=== PATIENT | male | born 1960 | race Caucasian/White ===

== ENCOUNTER 2016-07-06 10:53 | Observation (INO) | payer OTHER ==
[~2016-07-06] VITALS: Ht 182.2 cm; Wt 82.2 kg
[2016-07-06] VITALS (13 sets, daily range): BP systolic 118–145; BP diastolic 69–98; PULSE 51–63; RESP 12–20; O2SAT 97–100
[~2016-07-06 10:53] MED LIST: ATRV10T PO; Aspirin PO; CLOP75TA3 PO; Metoprolol Tartrate PO; [UNRECOGNIZED DRUG - REMARK] SL
[2016-07-06] MEDS ORDERED: Heparin 10,000 Unit/1,000 mL NS Premix IV ONE (15:56)
[2016-07-06] MEDS ORDERED: Heparin 1,000 Unit/mL 10 mL Inj ONE (15:56)
[2016-07-06] MEDS ORDERED: Heparin 1,000 Units/500 mL NS Premix IV ONE ×2 (15:56→17:05)
[2016-07-06] MEDS ORDERED: 0.9% Sodium Chloride 1,000 ML IV ONE (15:59)
[2016-07-06] MEDS ORDERED: Alum-Mag Hydrox-Simeth 30 mL Suspension PO PRN (16:10)
[2016-07-06] MEDS ORDERED: Senna-Docusate 8.6-50 mg Tablet PO PRN (16:10)
[2016-07-06] MEDS ORDERED: Ondansetron 2 mg/mL 2 mL Inj IVPUSH PRN ×2 (16:10→18:40)
[2016-07-06] MEDS ORDERED: Polyethylene Glycol (PEG) 17 Gm Powder PO PRN (16:10)
--- NOTE | 2016-07-06 16:16 | PCM.CHPCAR ---
Consult Subjective Date of service July 06, 2016 Date of admit July 06, 2016 at 15:50 Provider Requesting Consult Requesting Provider: Jameson Hager MD Primary Care Physician Primary Care Physician: Anaya Chief Complaint Chest pain History of Present Illness 56 y/o male with known CAD with s/p LCx stent in 2013. He sees Dr. Beasley. He was last seen in 2016 and was doing well. However, he has noticed classic symptoms for progressive exertioanal angina over the past 5 days which is new since his prior NSTEMI. He has normal LVEF. He has been compliant with his meds. His EKGs show no acute ST-T changes. His troponin(s) have been negative. Initially, we thought that we can schedule him as an outpatient cath but due to the fact he lives on [facility] and lives essentially alone, we decided to transfer him to [facility] for coronary angiogram. Review of Systems General: Denies: Energy Fatigue Eyes: Denies: Problem or recent change in eyes Ears, Nose, Mouth & Throat: Denies: Any hearing loss Respiratory: Denies: Dyspnea at rest Dyspnea with exertion Orthopnea or PND Significant dyspnea Cardiovascular: Reports: Usual anginal symptoms Denies: Atrial Fibrillation Gastrointestinal: Denies: Recent melena or hematochezia Ulcers or GI blood loss Genitourinary: Denies: Prostate symptoms Urinary symptoms Neurological: Denies: Any history of stroke/TIA symptoms Psychiatric: Denies: Anxiety Depression Endocrine: Denies: Heat or cold intolerance Polyuria or Polydipsia Integumentary: Denies: Any change in hair or nails Any rash or skin lesions Hematologic/Immunologic: Denies: Recent history of anemia Unusual bruising or bleeding [facility] Cardiovascular History: Denies: Coronary Artery Disease Myocardial Infarction Hx Any Other Health Problems?: NoHx Diabetes: No Scheduled ([Aspirin]) 81 MG TAB.CHEW 81 MG PO DAILY ([Metoprolol Tartrate]) 25 MG TABLET 25 MG PO BID Atorvastatin (Lipitor) 10 Mg Tab 10 MG PO DAILY Clopidogrel Bisulfate (Plavix) 75 Mg Tablet 75 MG PO DAILY Scheduled PRN ([Nitroglycerin-Expunged Drug, Do Not Renew!]) 0.4 MG SUBL 0.4 MG SL Q5MIN PRN PRN For Chest Pain Current Inpatient Medications Current Medications Lorazepam 1 mg ONCE PRN IVPUSH; Start 07/06/16 at 16:00; Stop 07/07/16 at 16:01 Nitroglycerin 0.4 mg PRN PRN SL; Start 07/06/16 at 16:00 Sodium Chloride 10 ml NINA IVFLUSH; Start 07/06/16 at 16:30 Allergies: Coded Allergies: Penicillins (Verified Allergy, Severe, Anaphylaxis, 07/08/12) Family History Family History Family hx of obesity but no premature CAD Social History Hx Alcohol Use: YesHx Tobacco Use: Yes Smoking Status: Light Tobacco Smoker (use nicotine gum/patch, quit smoking 2013) Exam General: Pleasant Cooperative Skin: Warm & dry to touch Head: Normocephalic Eye: EOMS intact No arcus or xanthelasma Neck: No JVD Ears, Nose & Throat: Ears no gross abnormalities Nose no gross abnormalities Cardiac: Normal non-displaced apical impulse Regular rhythm Normal S1 and S2 No murmurs Pulses: Pulses full/equal all extremities Both femoral pulses 2+ Abdomen: Soft, non-distended, non-tender No bruits Lymphatic: No palpable lymphadenopathy Extremities: Warm w/o deformities,erythema noted Neurological: Alert & oriented Psychological: Affect & interaction appropriate Assessment & Plan Problems: (1) CAD (coronary artery disease) Qualifiers: Coronary Disease-Associated Artery/Lesion type: [place] artery [place] vs. transplanted heart: [place] heart Associated angina: with unstable angina Qualified Code: I25.110 - Atherosclerotic heart disease of [place] coronary artery with unstable angina pectoris Plan: Actually, patient possibly has unstable angina based on the fact it has been quite suddenly and rapid onset, but still only occurs on exertion. Based on the fact he had residual LAD stenosis and prior PCI to mid LCx, I think it would be prudent to go ahead and take him to [employer] to delineate his coronary anatomy. Patient has clear understanding of the procedure and will like to go ahead with the coronary angiogram. Hopefully, this will be a straightforward PCI and if so then he may go home tomorrow. Apparently he lives with his girlfriend. Status: Acute ICD Code: I25.10 (2) Unstable angina Status: Acute ICD Code: I20.0 Time spent 60 minutes Ruperto Zuniga MD July 06, 2016 16:15
[2016-07-06] MEDS ORDERED: ATOR10TA66 PO (16:19)
[2016-07-06] MEDS ORDERED: ASPI-973 PO (16:19)
[2016-07-06] MEDS ORDERED: METO25TA6 PO (16:20)
[2016-07-06] MEDS ORDERED: NITR0.4T SL (16:20)
[2016-07-06] MEDS ORDERED: CLOP75TA28 PO (16:20)
[2016-07-06] MEDS ORDERED: Sodium Chloride LOK Flush 10 mL Syringe IVFLUSH SCH (16:30)
[2016-07-06] MEDS ORDERED: fentaNYL-PF 50 mCg/mL 2 mL Inj ONE (16:34)
[2016-07-06] MEDS ORDERED: Nitroglycerin 50,000 mcg/250 mL D5W Premix IV ONE (16:55)
--- NOTE | 2016-07-06 17:16 | PCM.CVCATH ---
Cardiac Cath Report Date of Service July 06, 2016 Primary Indication Unstable angina Procedure 1 Left heart catheterization 2. Selective coronary angiogram 3. Right femoral angiogram Vascular Access Right common femoral artery Procedure Details The patient was brought into the catheterization laboratory. The patient was nothing by mouth since midnight. The patient was prepped and sterilized in the appropriate fashion. Local anesthetic was given to the right groin region with lidocaine 1%. A percutaneous stick to the right groin region with an 18-gauge Seldinger needle was attempted. A 6 Ukrainian sheath was inserted into the right femoral artery. A 6 Ukrainian FL 4 diagnostic catheter was advanced and engaged into the left main. The left coronary angiography was performed in multiple views. The catheter was exchanged over the wire for a 6 Ukrainian FR4 diagnostic catheter. The catheter was engaged in the right coronary ostium and the right coronary angiography was performed in multiple views. The catheter was removed over the wire and exchanged for 6 Ukrainian angle pigtail catheter. LV hemodynamics were recorded. LV pullback was performed. All catheters were removed. The right femoral angiogram was performed to evaluate for closure device. Hemostasis was obtained with Perclose. The patient was transferred back to special observation unit for post procedural monitoring. There were no immediate complications. Total fluoroscopy time:3.8 min Total fluoroscopy dosage: 510 mGy Estimated blood loss: 15 mL Total contrast: 120 mL Findings 1. Hemodynamics: The left ventricular systolic pressure was estimated at 134 mmHg and the left ventricular end-diastolic pressure was estimated at 20 mmHg. There is no significant gradient during pullback. Aortic systemic pressure was 134/75 mmHg. 2. Selective coronary angiography: A. Left main: The artery has no evidence of significant disease. It bifurcates into the left anterior descending and left circumflex arteries. B. Left anterior descending artery: There is a 70% mid LAD stenosis. The first diagonal artery has a 50% stenosis. Otherwise the rest of the LAD shows no evidence of significant disease. C. Left circumflex artery: There is a 99% mid stenosis in a large bifurcated marginal artery. D. Right coronary artery: There is no evidence of significant disease. This is a dominant vessel. 4. Right femoral angiogram: There is no evidence of significant disease. Summary 1. Critical mid left circumflex artery stenosis. 2. Severe stenosis in the mid LAD. Comparison to previous angiogram it appears to be slightly worse. 3. Elevated left ventricular end-diastolic pressures. Recommendations The patient will proceed with urgent PCI the left circumflex artery. If that proceed smoothly then we will proceed with PCI of the mid LAD as well. If there are no complications overnight the patient may be discharged home tomorrow afternoon. copies to: Yuliana Beasley MD, Oscar J MD July 06, 2016 17:16
--- NOTE | 2016-07-06 18:19 | PCM.HPMED ---
Subjective Date of Service July 06, 2016 Primary Provider: Admitting Physician: Jameson Hager MD Primary Care Physician: Anaya Attending Physician: Jameson Hager MD Admit Status: Direct Admit ([facility]) Chief Complaint: Chest pain History of Present Illness: Mr. Salmon is a 56-year-old gentleman with a history of coronary artery disease and NSTEMI status post stent placement in December of 2013 who presented to [facility] with a 5 day history of chest pain on exertion and transferred here for cardiac catheterization. History obtained via chart review and from patient in the [facility] following PCI. He states that the chest pain he has been having occurs with exertion and has been relieved with rest. He denies associated symptoms including: shortness of breath, nausea or diaphoresis. He states that he is still having chest pain with radiation down his left arm post PCI that is just as severe as when he came. He otherwise is without complaint. Of note, patient was hospitalized here from 01/14- for NSTEMI and underwent PCI with LUIGI to left circumflex. Cardiac cath at that time also showed moderate stenosis of about 50-60% of the LAD and an EF of 55-60%. At [facility] his EKG showed normal sinus rhythm with no acute ST-T changes and troponin was negative. However, due to the rather acute onset and the fact that patient lives alone on [facility] the decision was made to transfer here for intervention. Labs: Troponin < 0.012, Creatinine kinase 182, CK-MB 1.85, Sodium 143, Potassium 4, Chloride 105, Bicarb 24, BUN 11, Creatinine 0.80, Glucose 77, WBC 7.5, Hb 14.6, Hct 42.5, plt 184. Review of Systems: A comprehensive review of systems was conducted with the patient and found to be negative except as above in the History of Present Illness. Allergies Coded Allergies: Penicillins (Verified Allergy, Severe, Anaphylaxis, 07/08/12) Home Medications As per most recent record. Medication rec not completed at the time of admission. Will confirm medications and order as appropriate. Appreciate Cardiology recommendations. Chart review shows the following: -Metoprolol tartrate 12.5mg BID -Aspirin 81mg daily -Atorvastatin 10mg daily -Clopidogrel 75mg daily -SL nitro 0.4mg prn PMH Coronary artery disease NSTEMI s/p LUIGI 01/15/14 Hyperlipidemia Chest pain Tobacco use Rupture of extensor tendon, finger . Surgical History Cardiac catheterization with LUIGI placement 01/15/14 Back surgery, 1985, 1997 Family History Father- diabetes, prostate cancer Social History Hx Alcohol Use: Yes Hx Substance Use: No Hx Tobacco Use: Yes Smoking Status: Current Some Day Smoker, Light Tobacco Smoker Living Arrangement: Alone Exam Exam General: Well-developed, well-nourished, appears comfortable and in no acute distress. HEENT: Normocephalic, atraumatic. External ears without defect. Pupils equal, round, and reactive to light and accommodation. Anicteric sclerae, moist conjunctivae, and no lid lag. Oropharynx free of erythema and cobble stoning with moist mucosa. Neck: Supple with full range of motion. No jugular venous distension. No bruits. No lymphadenopathy or thyromegaly. Cardiovascular: Regular rate and rhythm with no murmurs, rubs, or gallops appreciated Pulmonary: Clear to auscultation bilaterally with no crackles, wheezes, or rhonchi. Normal respiratory effort with no use of accessory muscles. Abdomen: Bowel tones present. Soft, nontender, nondistended. No hepatosplenomegaly or masses appreciated. Extremities: No clubbing, cyanosis, edema, or lymphadenopathy appreciated. Left groin cath site is clean and dry without bleeding or ecchymosis. Skin: Normal temperature, turgor, and texture; no rash, ulcers, or subcutaneous nodules appreciated. Neurological: Cranial nerves grossly intact. Normal muscle strength, tone, and bulk. No known gait impairment. Psychiatric: Normal mood and affect. Alert and oriented to person, place, and time. Assessment & Plan Mr. Salmon is a 56-year-old gentleman with a history of coronary artery disease and NSTEMI status post drug-eluting stent placement in December of 2013 transferred from [facility] for cardiac catheterization following exertional chest pain for the past five days. Chest pain, acute. Present on admission. Active. -Patient with known CAD, prior NSTEMI s/p LUIGI who presented with five day history of exertional chest pain. -EKG with no acute ST-T changes and initial troponin negative. Creatinine kinase elevated at 182. CK-MB 1.85 -Most recent echocardiogram(2013) and stress test (2014) normal without evidence of ischemia and EF 55-60%. -Admit to [facility] with telemetry post cath/PCI -Cardiology is following, appreciate recommendations. -Will continue medications per Cardiology: aspirin, plavix, statin, beta-lyndon -SL nitro as needed, as long as BP tolerates Coronary artery disease, chronic. Present on admission. Active -Status post left-sided cardiac catheterization and PCI, per Cardiology. -Continue aspirin, plavix, statin Dyslipidemia, chronic. Present on admission. Presumed stable. -Continue aspirin, statin History of tobacco use. Present on admission. Active -Patient quit in 2013 but reportedly smoking occasionally. -[place] [employer] Member regarding smoking cessation Acetaminophen-fever/headache/mild/moderate pain Antiemetics, as needed Bowel regimen, as needed. Disposition: Patient admitted under observational status with expected length of stay < 2 midnights due to severity of present symptoms and risk for adverse event. VTE Mechanical Devices: Intermittant Pneumatic CD Resuscitation Status: CPR: Attempt Resuscitation Attending Statement The patient was seen and examined together with Dr. Ochoa on 07/06/2016 and I agree with the history, exam and plan as outlined in the note above. . Demi Ochoa DO July 06, 2016 16:14 Jameson Hager MD July 07, 2016 14:26
[2016-07-06] MEDS ORDERED: 0.9% Sodium Chloride 250 ML BOLUS IV PRN (18:40)
[2016-07-06] MEDS ORDERED: Sodium Chloride LOK Flush 10 mL Syringe IVFLUSH PRN (18:40)
[2016-07-06] MEDS ORDERED: 0.9% Sodium Chloride 400 ML (4 HRS) IV ONE (18:40)
[2016-07-06] MEDS ORDERED: Atropine 1 mg/10 mL (Code) Syringe IVPUSH PRN (18:40)
--- NOTE | 2016-07-06 18:51 | NUR ---
Arrived to [facility] from [place] Pt arrived from [facility] at approximately 1545 via EMS. Pt VSS, Pt NPO, cardiology to consult. Care continues.
--- NOTE | 2016-07-06 18:53 | NUR ---
[facility] to [facility] Pt transported to [facility] at approximately 1625.
--- NOTE | 2016-07-06 19:48 | NUR ---
Received Received from labor representative at 1745. VSS. Tele SB. Stated 3-4/10 chest discomfort since cath done. Morphine 2mg IVP given about 1800 without change. EKG without ST abnormalities. Taking po. Dr. Stanton paged. Morphine 4mg IVP given with very minimal change. Dr. Stanton returned call about 1900 and ordered Versed 1mg IV and Tylenol 1gm IV. Transported to 2003 to finish recovery. Versed 1mg IVP given with relief of chest pain. Waiting for IV Tylenol from pharmacy. States some left elbow pain but IV found occluded and removed and states starting to feel better. Right groin stable to this point without bleeding or hematoma. Report to ROBERTO Cole.
[2016-07-06] MEDS ORDERED: Acetaminophen IV 1,000 MG in IV Premix 1 EACH IV ONE (19:50)
[2016-07-07] VITALS: BP 123/72; PULSE 60; RESP 20; O2SAT 98
[2016-07-07 03:00] LABS: Mean Corpuscular Hemoglobin 31.3 pg (27.0-35.0); Mean Corpuscular Volume 93.1 fL (81-100)
[2016-07-07 03:56] VITALS: BP 112/69; PULSE 64; RESP 20; O2SAT 97
[2016-07-07 05:36] VITALS: PULSE 56
--- NOTE | 2016-07-07 06:09 | NUR ---
Groin site Pt right groin site soft, non tender with no hematoma noted. Distal pulses palpable. VSS and Tele SB/SR
--- NOTE | 2016-07-07 06:56 | DI95 ---
[place] [address] INTERVENTIONAL CARDIAC CATHETERIZATION PATIENT: KEVIN WARNER : 1960 MR#: [id number] ADMIT: 07/06/2016 JOB ID: [id number] DATE OF SERVICE: 07/06/2016 PATIENT PROFILE: The patient is a 56-year-old male who presented with acute coronary syndrome. PROCEDURES: 1. Balloon angioplasty and stenting to the mid circumflex artery. 2. Balloon angioplasty and stenting to the mid left anterior descending. VASCULAR CLOSURE DEVICE: Perclose. COMPLICATIONS: None. METHOD: Following diagnostic angiogram performed by Dr. Zuniga, heparin 100 units/kg and prasugrel 60 mg were given. A 6-Malay CLS 3.5 guide was advanced to the left coronary ostium. A Runthrough wire was placed inside the mid circumflex artery. The mid circumflex artery lesion was pre-dilated with a 2.5 x 15 mm balloon. A Xience 2.5 x 12 mm stent was placed inside the mid circumflex artery lesion and deployed at 10 atmospheres for 20 seconds. Final angiogram was obtained. The attention was then turned to the left anterior descending artery. The Runthrough wire was redirected to the left anterior descending artery. The mid left anterior descending artery lesion was pre-dilated with a 2.5 x 15 mm balloon. A Xience 3.0 x 15 mm stent was placed inside the mid left anterior descending artery lesion and deployed at 12 atmospheres for 20 seconds. Nitroglycerin 200 mcg was given intracoronary. Final angiogram was obtained. Following sheath removal, hemostasis was achieved by using a Perclose device. The patient tolerated the procedure well. He was transferred to [facility] in good condition. TOTAL CONTRAST USED: 120 cc. FLUOROSCOPY TIME: 3.8 minutes. TOTAL RADIATION DOSE: 510 mGy. RESULTS: 1. Successful balloon angioplasty and stenting to the tight culprit mid circumflex artery lesion by deploying one drug eluting stent (2.5 x 12 mm) to achieve an excellent angiographic result with ZEYNEP-3 flow distally. 2. Successful balloon angioplasty and stenting to the severe mid left anterior descending artery lesion by deploying one drug eluting stent (3.0 x 15 mm) to achieve an excellent angiographic result with ZEYNEP-[address] [facility]
[2016-07-07 08:00] VITALS: PULSE 60
[2016-07-07 08:50] VITALS: BP 128/87; PULSE 67; RESP 18; O2SAT 99
--- NOTE | 2016-07-07 09:15 | NUR ---
Groin/left arm Right groin site has pain on palp, no sign of hematoma, slight bruising. Bilateral pedal pulses strong. Pt states left arm still feels achy, has diminished, but constant. MD aware. Care continues.
--- NOTE | 2016-07-07 10:19 | NUR ---
Social Work Note: Screen Note Data& Assessment: EMR reviewed. Patient is a 56 year old male admitted on 07/06/16 for Exterional Angina. SW met with patient at bedside and Pt reports that he has [employer] for insurance coverage and sees Joan Clarke MD for primary care. Pt lives with family and is independent at baseline. Pt is currently independent in her room. Podiatric Aide provided patient with Advanced Directive/DPOA paperwork. No discharge needs identified at this time. SW to continue to follow if any needs arise. Plan: Anticipated discharge home via POV when medically ready. No discharge needs identified at this time. SW to continue to follow incase any needs arise. Kellie Peter LMSW, ACM
--- NOTE | 2016-07-07 11:15 | PCM.PNMED ---
Subjective Date of Service July 07, 2016 Subjective Mr. Salmon is a 56-year-old gentleman with a history of coronary artery disease and NSTEMI status post stent placement in December of 2013 who presented to [facility] with a 5 day history of exertional angina and transferred here for cardiac catheterization. Now status post PCI with stenting of left circumflex and left anterior descending artery. Patient is resting comfortably and visiting with family this morning. He states that he feels well enough to go home. He denies ongoing chest pain, shortness of breath, dizziness, headache, pain or swelling at the cath site. Per nursing, patient reported 3-4/10 chest discomfort post procedure which was relieved with morphine and midazolam. EKG without ST abnormalities. . Exam Vital Signs Vital Sign - Last Date Time Temp Pulse Resp B/P Pulse Ox O2 Delivery O2 Flow Rate FiO2 07/07/16 05:36 56 07/07/16 03:56 36.7 20 112/69 97 Room Air Intake and Output 07/06/16 07/06/16 07/07/16 Cumulative From/Thru 15:00 23:00 07:00 07/06/16 15:45 - 07/07/16 06:16 Intake Total 1347 ml 1347 ml Output Total 600 ml 600 ml Balance 747 ml 747 ml Intake Oral 400 ml 400 ml IV Total 947 ml 947 ml Output Urine Total 600 ml 600 ml # Voids 1 1 Exam General: Well-developed, well-nourished, appears comfortable and in no acute distress. HEENT: Normocephalic, atraumatic. Pupils equal, round, and reactive to light and accommodation. Anicteric sclerae, oral mucosa moist/pink. Neck: Supple, nontender, no jugular venous distension, no lymphadenopathy Cardiovascular: Regular rate and rhythm with no murmurs, rubs, or gallops appreciated Pulmonary: Clear to auscultation bilaterally with no crackles, wheezes, or rhonchi. Normal respiratory effort with no use of accessory muscles. Abdomen: Bowel tones present. Soft, nontender, nondistended. No masses appreciated. Extremities: No clubbing, cyanosis, edema, or lymphadenopathy appreciated. Left groin cath site is clean and dry without bleeding or hematoma Skin: Normal temperature, turgor, and texture; no rash, ulcers, or subcutaneous nodules appreciated. Neurological: Cranial nerves grossly intact. No focal deficits. Psychiatric: Normal mood and affect. Alert and oriented to person, place, and time. IVs and Medications Medications Reviewed: Medications were reviewed in detail Lab and Diagnostics Laboratory Tests Test 07/07/16 02:26 White Blood Count 6.5th/mm3 (3.8-10.1) Red Blood Count 4.50mil/mm3 (4.40-5.80) Hemoglobin 14.1g/dL (13.8-17.2) Hematocrit 41.9% (41.0-50.0) Mean Corpuscular Volume 93.1fL (81-100) Mean Corpuscular Hemoglobin 31.3pg (27.0-35.0) Mean Corpuscular Hemoglobin Concent 33.7% (32.0-37.0) Red Cell Distribution Width 13.0% (12.3-15.4) Platelet Count 192bil/L (150-400) Sodium Level 140mEq/L (134-144) Potassium Level 4.5mEq/L (3.5-5.2) Chloride Level 105mEq/L (97-108) Carbon Dioxide Level 26mmol/L (18-29) Blood Urea Nitrogen 16mg/dL (6-24) Creatinine 1.00mg/dL (0.76-1.27) Estimat Glomerular Filtration Rate 83mL/min (>59) Glucose Level 81mg/dL (60-99) Calcium Level 8.6mg/dL (8.5-10.1) Result Diagram: 07/07/1622507/07/166 [facility] labs: Troponin < 0.012, Creatinine kinase 182, CK-MB 1.85, Sodium 143, Potassium 4, Chloride 105, Bicarb 24, BUN 11, Creatinine 0.80, Glucose 77, WBC 7.5, Hb 14.6, Hct 42.5, plt 184. Chart review shows the following: -Metoprolol tartrate 12.5mg BID -Aspirin 81mg daily -Atorvastatin 10mg daily -Clopidogrel 75mg daily -SL nitro 0.4mg prn 12-lead ECG EKG showed normal sinus rhythm with no acute ST-T changes Additional Diagnostics (07/06/16) Cardiac Cath Report Summary 1. Critical mid left circumflex artery stenosis. 2. Severe stenosis in the mid LAD. Comparison to previous angiogram it appears to be slightly worse. 3. Elevated left ventricular end-diastolic pressures. Recommendations The patient will proceed with urgent PCI the left circumflex artery. If that proceed smoothly then we will proceed with PCI of the mid LAD as well. If there are no complications overnight the patient may be discharged home tomorrow afternoon. Electronically signed by Ruperto Zuniga MD> 07/06/162008 (07/06/16) PCI- Balloon angioplasty and stenting to mid circumflex artery and to the mid left anterior descending RESULTS: 1. Successful balloon angioplasty and stenting to the tight culprit mid circumflex artery lesion by deploying one drug eluting stent (2.5 x 12 mm) to achieve an excellent angiographic result with ZEYNEP-3 flow distally. 2. Successful balloon angioplasty and stenting to the severe mid left anterior descending artery lesion by deploying one occluding stent (3.0 x 15 mm ) to achieve an excellent angiographic result with ZEYNEP-3 flow distally. Jose Flynn MD 07/06/16 6341 Assessment & Plan Mr. Salmon is a 56-year-old gentleman with a history of coronary artery disease and NSTEMI status post drug-eluting stent placement in December of 2013 transferred from [facility] for cardiac catheterization following exertional chest pain for the past five days. Exertional angina, acute. Present on admission. Resolved. -Patient with known CAD, prior NSTEMI s/p LUIGI who presented with five day history of exertional chest pain. -EKG with no acute ST-T changes and troponin negative. Creatinine kinase elevated at 182. CK-MB 1.85 -Most recent echocardiogram(2013) and stress test (2014) normal without evidence of ischemia and EF 55-60%. -Status post PCI with stenting of mid left circumflex artery and mid left anterior descending artery (07/06) -Cardiology is following, appreciate recommendations. -Continue aspirin 81mg daily, plavix 75mg daily, atorvastatin-40mg daily and metoprolol tartrate 12.5mg bid Coronary artery disease, chronic. Present on admission. Active -Cardiology is following, PCI as above. -Continue aspirin, plavix, atorvastatin as above. Dyslipidemia, chronic. Present on admission. Presumed stable. -Continue aspirin, statin History of tobacco use. Present on admission. Active -Patient quit in 2013 but reportedly smoking occasionally. -Counseled regarding smoking cessation Acetaminophen-fever/headache/mild/moderate pain Antiemetics, as needed Bowel regimen, as needed. Disposition: Patient will likely discharge home today with Cardiology followup in the next 1-2 weeks. Pain Evaluation: Adequate Pain Control VTE Mechanical Devices: Intermittant Pneumatic CD Resuscitation Status: CPR: Attempt Resuscitation Attending Statement The patient was seen and examined together with Dr. Ochoa on 07/07/2016 and I agree with the history, exam and plan as outlined in the note above. . Demi Ochoa DO July 07, 2016 08:33 Jameson Hager MD July 07, 2016 14:26
[2016-07-07] MEDS ORDERED: ATOR40TA69 PO (11:17)
--- NOTE | 2016-07-07 11:53 | PCM.DIMED ---
Demi Ochoa DO 07/07/16 1115: Discharge Instructions Date of Service July 07, 2016 Dates of Hospitalization July 06, 2016 at 15:50 Discharge Diagnosis Discharge Diagnosis Chest pain on exertion secondary to coronary artery disease with successful angioplasty and stenting of two coronary arteries. Medication Instructions The following change was made to your medication: atorvastatin (Lipitor) was increased to 40mg daily. Take one tablet by mouth once daily. Continue taking the following medications: -Metoprolol tartrate 12.5mg twice daily. -Aspirin 81mg once daily -Plavix (clopidogrel) 75mg once daily. -Sublingual nitroglycerin 0.4mg as needed for chest pain. Diet Heart Healthy Activity Other (As tolerated. ) Call your provider Shortness of breath, Chest pain, Weakness (unilateral), Other (If you develop any other new or concerning symptoms contact your primary care provider. ) Patient Instructions - It is normal for the catheter insertion site to be black and blue for a couple of days. The site may also be slightly swollen and pink but if you have bleeding or a large lump develops seek urgent care. - Keep the catheter insertion site clean and dry. Wash the site gently with soap and water but do not rub. - Take it easy for the first two days after you get home, you may feel tired and weak the day after the procedure. Take walks around your house and plan to rest for the day. - For the next 3-5 days: - Do not strain during bowel movements - Avoid heavy lifting (more than 10 pounds) and pushing or pulling heavy objects - Gradually increase your activities as tolerated until you reach your normal activity level within one week. Followup with Cardiology (Dr. Beasley) in 2-4 weeks and with your primary care provider in 1-2 weeks. Follow-up plan CARDIOLOGY Yuliana Beasley MD [facility] [address] [facility] [address] [place] [address] Follow-up with PCP in: Other (1-2 weeks) Provider: Yuliana Beasley MD Follow-up in: Other (2-4 weeks) Jameson Hager MD 07/07/16 1425: Discharge Instructions Attending's Statement The patient was seen and examined together with Dr. Ochoa on 07/07/2016 and I agree with the history, exam and plan as outlined in the note above. . Demi Ochoa DO July 07, 2016 11:15 Jameson Hager MD July 07, 2016 14:25
[2016-07-07] MEDS ORDERED: CLOP75TA28 PO (12:28)
[2016-07-07 12:54] VITALS: BP 120/80; PULSE 56; RESP 20; O2SAT 98
--- NOTE | 2016-07-07 13:32 | NUR ---
Discharge Pt discharged at approximately 1315 to home with and daughter. Pt given booklet for Angioplasty/Stent, educational material for Carotid Artery Stent Insertion & Angina. New prescriptions given for Plavix and Atorvastatin. Pt already taking both EMERGENCY ROOM ORDERLY. Pt given Stent Card and booklet from Cardiology. Follow up appointments with PCP and Cardiology noted. Next dose to be taken for all medications clearly written and dated. Pt IV DC'd with catheter intact, Tele DC'd air and hydronic balancing technician notified. Pt left with all personal belongings. Pt escorted by [employer] STOCK CLERK in wheelchair to front door.
--- NOTE | 2016-07-07 18:29 | PCM.DC.MED ---
Discharge Summary Date of Service July 07, 2016 Dates of Hospitalization Date of Hospital Admission July 06, 2016 at 15:50 Date of Discharge: July 07, 2016 Providers: Admitting Physician: Jameson Hager MD Primary Care Physician: Anaya Attending Physician: Jameson Hager MD Diagnosis at Time of Discharge Diagnosis at Time of Discharge Exertional angina in patient with known coronary artery disease status post PCI with stenting of mid left circumflex artery and mid left anterior descending artery on July 06, 2016. Dyslipidemia History of tobacco use Prior NSTEMI with LUIGI placement in 2013. Consultations CARDIOLOGY Procedures ECG 12 Lead EKG showed normal sinus rhythm with no acute ST-T changes Invasive Procedures July 06, 2016- Cardiac Cath Report: Ruperto Zuniga MD Procedure 1 Left heart catheterization 2. Selective coronary angiogram 3. Right femoral angiogram Vascular Access Right common femoral artery Procedure Details The patient was brought into the catheterization laboratory. The patient was nothing by mouth since midnight. The patient was prepped and sterilized in the appropriate fashion. Local anesthetic was given to the right groin region with lidocaine 1%. A percutaneous stick to the right groin region with an 18-gauge Seldinger needle was attempted. A 6 Macanese sheath was inserted into the right femoral artery. A 6 Macanese FL 4 diagnostic catheter was advanced and engaged into the left main. The left coronary angiography was performed in multiple views. The catheter was exchanged over the wire for a 6 Macanese FR4 diagnostic catheter. The catheter was engaged in the right coronary ostium and the right coronary angiography was performed in multiple views. The catheter was removed over the wire and exchanged for 6 Macanese angle pigtail catheter. LV hemodynamics were recorded. LV pullback was performed. All catheters were removed. The right femoral angiogram was performed to evaluate for closure device. Hemostasis was obtained with Perclose. The patient was transferred back to special observation unit for post procedural monitoring. There were no immediate complications. Total fluoroscopy time:3.8 min Total fluoroscopy dosage: 510 mGy Estimated blood loss: 15 mL Total contrast: 120 mL Findings 1. Hemodynamics: The left ventricular systolic pressure was estimated at 134 mmHg and the left ventricular end-diastolic pressure was estimated at 20 mmHg. There is no significant gradient during pullback. Aortic systemic pressure was 134/75 mmHg. 2. Selective coronary angiography: A. Left main: The artery has no evidence of significant disease. It bifurcates into the left anterior descending and left circumflex arteries. B. Left anterior descending artery: There is a 70% mid LAD stenosis. The first diagonal artery has a 50% stenosis. Otherwise the rest of the LAD shows no evidence of significant disease. C. Left circumflex artery: There is a 99% mid stenosis in a large bifurcated marginal artery. D. Right coronary artery: There is no evidence of significant disease. This is a dominant vessel. 4. Right femoral angiogram: There is no evidence of significant disease. Summary 1. Critical mid left circumflex artery stenosis. 2. Severe stenosis in the mid LAD. Comparison to previous angiogram it appears to be slightly worse. 3. Elevated left ventricular end-diastolic pressures. Recommendations The patient will proceed with urgent PCI the left circumflex artery. If that proceed smoothly then we will proceed with PCI of the mid LAD as well. If there are no complications overnight the patient may be discharged home tomorrow afternoon. <Electronically signed by Ruperto Zuniga MD> 07/06/162008July 06, 2016- INTERVENTIONAL CARDIAC CATHETERIZATION PROCEDURES: 1. Balloon angioplasty and stenting to the mid circumflex artery. 2. Balloon angioplasty and stenting to the mid left anterior descending. VASCULAR CLOSURE DEVICE: Perclose. COMPLICATIONS: None. METHOD: Following diagnostic angiogram performed by Dr. Zuniga, heparin 100 units/kg and prasugrel 60 mg were given. A 6-Macanese CLS 3.5 guide was advanced to the left coronary ostium. A Runthrough wire was placed inside the mid circumflex artery. The mid circumflex artery lesion was pre-dilated with a 2.5 x 15 mm balloon. A Xience 2.5 x 12 mm stent was placed inside the mid circumflex artery lesion and deployed at 10 atmospheres for 20 seconds. Final angiogram was obtained. The attention was then turned to the left anterior descending artery. The Runthrough wire was redirected to the left anterior descending artery. The mid left anterior descending artery lesion was pre-dilated with a 2.5 x 15 mm balloon. A Xience 3.0 x 15 mm stent was placed inside the mid left anterior descending artery lesion and deployed at 12 atmospheres for 20 seconds. Nitroglycerin 200 mcg was given intracoronary. Final angiogram was obtained. Following sheath removal, hemostasis was achieved by using a Perclose device. The patient tolerated the procedure well. He was transferred to [facility] in good condition. TOTAL CONTRAST USED: 120 cc. FLUOROSCOPY TIME: 3.8 minutes. TOTAL RADIATION DOSE: 510 mGy. RESULTS: 1. Successful balloon angioplasty and stenting to the tight culprit mid circumflex artery lesion by deploying one drug eluting stent (2.5 x 12 mm) to achieve an excellent angiographic result with ZEYNEP-3 flow distally. 2. Successful balloon angioplasty and stenting to the severe mid left anterior descending artery lesion by deploying one occluding stent (3.0 x 15mm) to achieve an excellent angiographic result with ZEYNEP-3 flow distally. Jose Flynn MD 07/06/16 [id number] . Brief History Mr. Salmon is a 56-year-old gentleman with a history of coronary artery disease and NSTEMI status post stent placement in December of 2013 who presented to [facility] with a 5 day history of chest pain on exertion and transferred here for cardiac catheterization. History obtained via chart review and from patient in the [facility] following PCI. He states that the chest pain he has been having occurs with exertion and has been relieved with rest. He denies associated symptoms including: shortness of breath, nausea or diaphoresis. He states that he is still having chest pain with radiation down his left arm post PCI that is just as severe as when he came. He otherwise is without complaint. Of note, patient was hospitalized here from 01/14- for NSTEMI and underwent PCI with LUIGI to left circumflex. Cardiac cath at that time also showed moderate stenosis of about 50-60% of the LAD and an EF of 55-60%. At [facility] his EKG showed normal sinus rhythm with no acute ST-T changes and troponin was negative. However, due to the rather acute onset and the fact that patient lives alone on [facility] the decision was made to transfer here for intervention. Labs: Troponin < 0.012, Creatinine kinase 182, CK-MB 1.85, Sodium 143, Potassium 4, Chloride 105, Bicarb 24, BUN 11, Creatinine 0.80, Glucose 77, WBC 7.5, Hb 14.6, Hct 42.5, plt 184. Hospital Course Mr. Salmon is a 56-year-old gentleman with a history of coronary artery disease and NSTEMI status post drug-eluting stent placement in December of 2013 transferred from [facility] for cardiac catheterization following exertional chest pain for the past five days. Exertional angina, acute. Present on admission. Resolved. -Patient with known CAD, prior NSTEMI s/p LUIGI who presented with five day history of exertional chest pain. Cardiology was consulted and patient underwent cardiac cath with PCI on 07/06/16. -EKG with no acute ST-T changes and troponin negative. Creatinine kinase elevated at 182. CK-MB 1.85 -Most recent echocardiogram(2013) and stress test (2014) normal without evidence of ischemia and EF 55-60%. -Status post PCI with stenting of mid left circumflex artery and mid left anterior descending artery (07/06) -Patient was continued on aspirin 81mg daily, clopidogrel 75mg daily, atorvastatin-40mg daily and metoprolol tartrate 12.5mg bid Coronary artery disease, chronic. Present on admission. Presumed stable. -Patient was continued on aspirin, plavix, atorvastatin as above. -Recommend close outpatient followup with both Cardiology and primary care. Dyslipidemia, chronic. Present on admission. Presumed stable. Patient was continued on aspirin, plavix, atorvastatin as above. History of tobacco use. Present on admission. Active -Patient quit in 2013 but reported the occasional cigarette. -Counseled regarding smoking cessation and he expressed interest in BUPROPION to help get off nicotine replacement lozenges. -Patient reported success quitting cigarettes with VARENICLINE three years ago but has not had success with quitting nicotine replacement -Advised patient to discuss cessation aids with his primary care provider. -Patient reports recently contacting a new primary care provider to establish care but has not met with them yet. Exam Vital Signs (Last) Date Time Temp Pulse Resp B/P Pulse Ox O2 Delivery O2 Flow Rate FiO2 07/07/16 08:50 36.3 67 18 128/87 99 Room Air Exam General: Well-developed, well-nourished, appears comfortable and in no acute distress. HEENT: Normocephalic, atraumatic. Pupils equal, round, and reactive to light and accommodation. Anicteric sclerae, oral mucosa moist/pink. Neck: Supple, nontender, no jugular venous distension, no lymphadenopathy Cardiovascular: Regular rate and rhythm with no murmurs, rubs, or gallops appreciated Pulmonary: Clear to auscultation bilaterally with no crackles, wheezes, or rhonchi. Normal respiratory effort with no use of accessory muscles. Abdomen: Bowel tones present. Soft, nontender, nondistended. No masses appreciated. Extremities: No clubbing, cyanosis, edema, or lymphadenopathy appreciated. Left groin cath site is clean and dry without bleeding or hematoma Skin: Normal temperature, turgor, and texture; no rash, ulcers, or subcutaneous nodules appreciated. Neurological: Cranial nerves grossly intact. No focal deficits. Psychiatric: Normal mood and affect. Alert and oriented to person, place, and time. Test 07/07/16 02:26 White Blood Count 6.5th/mm3 (3.8-10.1) Red Blood Count 4.50mil/mm3 (4.40-5.80) Hemoglobin 14.1g/dL (13.8-17.2) Hematocrit 41.9% (41.0-50.0) Mean Corpuscular Volume 93.1fL (81-100) Mean Corpuscular Hemoglobin 31.3pg (27.0-35.0) Mean Corpuscular Hemoglobin Concent 33.7% (32.0-37.0) Red Cell Distribution Width 13.0% (12.3-15.4) Platelet Count 192bil/L (150-400) Sodium Level 140mEq/L (134-144) Potassium Level 4.5mEq/L (3.5-5.2) Chloride Level 105mEq/L (97-108) Carbon Dioxide Level 26mmol/L (18-29) Blood Urea Nitrogen 16mg/dL (6-24) Creatinine 1.00mg/dL (0.76-1.27) Estimat Glomerular Filtration Rate 83mL/min (>59) Glucose Level 81mg/dL (60-99) Calcium Level 8.6mg/dL (8.5-10.1) [facility] labs: Troponin < 0.012, Creatinine kinase 182, CK-MB 1.85, Sodium 143, Potassium 4, Chloride 105, Bicarb 24, BUN 11, Creatinine 0.80, Glucose 77, WBC 7.5, Hb 14.6, Hct 42.5, plt 184. Discharge Medications Discharge Medications Aspirin (Aspirin) 81 Mg Tablet 81 MG PO DAILY (Reported) Atorvastatin Calcium (Atorvastatin Calcium) 40 Mg Tablet 40 MG PO DAILY Prescribed by: EMMETT LACKEY DO Clopidogrel (Clopidogrel) 75 Mg Tablet 75 MG PO DAILY (Reported) Clopidogrel (Clopidogrel) 75 Mg Tablet 75 MG PO DAILY Prescribed by: EMMETT LACKEY, Clopidogrel Bisulfate (Plavix) 75 Mg Tablet 75 MG PO DAILY Prescribed by: KATHERIN CALIX MD Metoprolol Tartrate (Metoprolol Tartrate) 25 Mg Tablet 12.5 MG PO BID (Reported ) As needed Nitroglycerin SL (Nitrostat) 0.4 Mg Tab.subl 0.4 MG SL Q5MIN PRN PRN For Chest Pain (Reported) Additional med instructions The following change was made to your medication: atorvastatin (Lipitor) was increased to 40mg daily. Take one tablet by mouth once daily. Continue taking the following medications: -Metoprolol tartrate 12.5mg twice daily. -Aspirin 81mg once daily -Plavix (clopidogrel) 75mg once daily. -Sublingual nitroglycerin 0.4mg as needed for chest pain. Followup Plan Disposition: Patient with known coronary artery disease and prior NSTEMI with drug-eluting stent placement in December of 2013 presented with five day history of exertional chest pain and underwent cardiac cath with percutaneous intervention with stenting of left circumflex and left anterior descending coronary arteries , per Cardiology without complication. He was monitored overnight and chest pain resolved post procedure. He was hemodynamically stable and without chest pain or concerning symptoms. The groin catheterization site was without bleeding or hematoma and the patient was discharged home. He is to followup with a primary care provider within the next 1-2 weeks and Cardiology within 2- 4 weeks. I reviewed activity precautions, counseled patient regarding smoking cessation aides should he need them. Patient verbalized understanding to the plan. Follow-up plan CARDIOLOGY Yuliana Beasley MD [facility] Card[facility] [address] [place], [place] [id number] Discharge Diet: Heart Healthy Discharge Activity: Other (As tolerated. ) Patient Instructions - It is normal for the catheter insertion site to be black and blue for a couple of days. The site may also be slightly swollen and pink but if you have bleeding or a large lump develops seek urgent care. - Keep the catheter insertion site clean and dry. Wash the site gently with soap and water but do not rub. - Take it easy for the first two days after you get home, you may feel tired and weak the day after the procedure. Take walks around your house and plan to rest for the day. - For the next 3-5 days: - Do not strain during bowel movements - Avoid heavy lifting (more than 10 pounds) and pushing or pulling heavy objects - Gradually increase your activities as tolerated until you reach your normal activity level within one week. Followup with Cardiology (Dr. Beasley) in 2-4 weeks and with your primary care provider in 1-2 weeks. Follow-up with PCP in: Other (1-2 weeks) Provider: Yuliana Beasley MD Follow-up in: Other (2-4 weeks) Time spent Greater than 30 minutes was spent in preparation of discharge with greater than 50% of that time dedicated to patient counseling and coordination of care. . Attending Statement The patient was seen and examined together with Dr. Lackey on 07/07/2016 and I agree with the history, exam and plan as outlined in the note above. . copies to: Yuliana Beasley MD, Courtney M DO July 07, 2016 11:54 Jameson Hager MD July 09, 2016 15:36
== END 2016-07-07 13:24 | disposition home or self-care (01) ==
LOC: PCC 15:50 → INTOOBSV 15:50
PROVIDERS: ADMIT Internal Medicine; ATTEND Internal Medicine
DX: I25.110 Atherosclerotic heart disease of native coronary artery with unstable angina pectoris (principal); Z95.5 Presence of coronary angioplasty implant and graft; I25.2 Old myocardial infarction; E78.5 Hyperlipidemia, unspecified; F17.200 Nicotine dependence, unspecified, uncomplicated; Z79.82 Long term (current) use of aspirin; Z79.02 Long term (current) use of antithrombotics/antiplatelets
CPT/HCPCS: 36415; 80048; 85027; 93005; 93458; 99152; 99153; C1725; C1760; C1769; C1874; C1887; C9600; G0378; G0379; J0131; J1644; J2250; J2270; J3010